=== PATIENT | male | born 1985 | race Caucasian/White ===

== ENCOUNTER 2018-08-26 19:08 | Inpatient (IN) | payer OTHER ==
[~2018-08-26] VITALS: Ht 177.8 cm; Wt 96.2 kg
[2018-08-26 20:13] LABS: BASOPHILS 0.2 % (0-2); HEMATOCRIT 40.2 % (42.0-54.0); IMMATURE GRANULOCYTES 0.4 % (0-5); LYMPHOCYTES 30.6 % (15-50); MCH 29.7 pg (26.0-34.0); MCHC 34.8 g/dL (31.0-37.0); MCV 85.4 fL (80.0-100.0); MEAN PLATELET VOLUME 9.8 fL (7.4-10.4); MONOCYTES 7.6 % (2-11); NEUTROPHILS 59.2 % (40-80); PLATELET COUNT 236 10x3/uL (130-400); RBC 4.71 10x6/uL (4.20-6.10); RDW 12.7 % (11.5-14.5); WBC 10.4 10x3/uL (4.8-10.8)
[2018-08-26 20:25] LABS: ALBUMIN 4.2 g/dL (3.4-5.0); ALKALINE PHOSPHATASE 61 U/L (46-116); ALT (SGPT) 28 U/L (10-68); BILIRUBIN - TOTAL 0.31 mg/dL (0.2-1.3); CALC OSMOLALITY 278 mosm/kg (275-300); CALCIUM 8.9 mg/dL (8.5-10.1); CARBON DIOXIDE 28.5 mmol/L (21.0-32.0); CHLORIDE - SERUM 104 mmol/L (98-107); GLUCOSE 95 mg/dL (74-106); POTASSIUM - SERUM 3.5 mmol/L (3.5-5.1); PROTEIN - SERUM 7.6 g/dL (6.4-8.2); SODIUM 140 mmol/L (136-145); UREA NITROGEN 13 mg/dL (7-18); eGFR NON AFRICAN AMERICAN > 90 mL/min (90-120)
[2018-08-26 20:29] LABS: AMYLASE - SERUM 50 U/L (25-115); LIPASE 100 U/L (73-393)
[2018-08-26 20:46] LABS: TROPONIN-I < 0.017 ng/mL (0.000-0.060)
[2018-08-26 22:17] VITALS: BP 132/77
--- NOTE | 2018-08-26 22:38 | NUR ---
[facility] PAGED PER ORDERS TO CONSULT
--- NOTE | 2018-08-26 22:40 | NUR ---
REC'D CALLBACK FROM [facility], NOTIFIED OF CONSULT, ORDERS FOR NPO AFTER MIDNIGHT GIVEN.
[2018-08-26 23:00] VITALS: BP 124/68
[2018-08-26 23:28] VITALS: BP 102/63
[2018-08-26 23:52] VITALS: BP 124/68; BMI 30.4
[2018-08-27] VITALS (19 sets, daily range): BP systolic 95–124; BP diastolic 51–96; Ht 177.8 cm; Wt 96.2 kg
--- NOTE | 2018-08-27 | NUR ---
SIGNIFICANT OTHER AT BEDSIDE, UPDATE PROVIDED AND QUESTIONS ANSWERED.
--- NOTE | 2018-08-27 03:25 | NUR ---
REASSESSMENT COMPLETE, SEE FLOWSHEET. PT AOX4, VSS. NO C/O PAIN AT THIS TIME. REPOSITIONS SELF INDEPENDENTLY. DENIES NEEDS. CALL LIGHT WITHIN PT REACH. CPOC.
[2018-08-27 04:32] LABS: BASOPHILS 0.3 % (0-2); EOSINOPHILS 2.8 % (0-7); HEMATOCRIT 36.5 % (42.0-54.0); HEMOGLOBIN 12.4 g/dL (13.5-17.5); IMMATURE GRANULOCYTES 0.3 % (0-5); LYMPHOCYTES 37.6 % (15-50); MCV 85.5 fL (80.0-100.0); MEAN PLATELET VOLUME 9.6 fL (7.4-10.4); MONOCYTES 6.8 % (2-11); NEUTROPHILS 52.2 % (40-80); PLATELET COUNT 212 10x3/uL (130-400); RBC 4.27 10x6/uL (4.20-6.10); RDW 12.7 % (11.5-14.5); WBC 7.8 10x3/uL (4.8-10.8)
[2018-08-27 04:51] LABS: ALBUMIN 3.3 g/dL (3.4-5.0); ALKALINE PHOSPHATASE 51 U/L (46-116); ALT (SGPT) 23 U/L (10-68); BILIRUBIN - TOTAL 0.69 mg/dL (0.2-1.3); CALC OSMOLALITY 279 mosm/kg (275-300); CALCIUM 8.3 mg/dL (8.5-10.1); CARBON DIOXIDE 27.1 mmol/L (21.0-32.0); CHLORIDE - SERUM 107 mmol/L (98-107); CREATININE - SERUM 0.9 mg/dL (0.6-1.3); GLUCOSE 88 mg/dL (74-106); POTASSIUM - SERUM 3.6 mmol/L (3.5-5.1); PROTEIN - SERUM 6.3 g/dL (6.4-8.2); SODIUM 141 mmol/L (136-145); UREA NITROGEN 13 mg/dL (7-18); eGFR NON AFRICAN AMERICAN > 90 mL/min (90-120)
[2018-08-27 05:16] LABS: MAGNESIUM - SERUM 1.9 mg/dL (1.8-2.4)
[2018-08-27 05:37] LABS: APPEARANCE CLEAR (CLEAR); BILIRUBIN NEGATIVE (NEGATIVE); COLOR YELLOW (YELLOW); GLUCOSE NEGATIVE (NEGATIVE); KETONE NEGATIVE (NEGATIVE); NITRITE NEGATIVE (NEGATIVE); PROTEIN NEGATIVE (NEGATIVE); SPECIFIC GRAVITY 1.015 (1.005-1.020); UROBILINOGEN NORMAL (NORMAL)
[2018-08-27 05:38] LABS: BACTERIA NONE SEEN /hpf (NONE SEEN); EPITHELIAL CELLS 0-5 /hpf (0-5); RED CELLS - URINE NONE SEEN /hpf (0-5); WHITE CELLS - URINE 0-5 /hpf (0-5)
--- NOTE | 2018-08-27 05:53 | NUR ---
PT RESTING QUIETLY WITH NO C/O PAIN. VSS, AOX4. REPOSITIONS SELF INDEPENDENTLY. DENIES NEEDS AT THIS TIME. CALL LIGHT AND BEDSIDE TABLE WITHIN PT REACH. CPOC.
--- NOTE | 2018-08-27 07:00 | NUR ---
SHIFT ASSESSMENT COMPLETED, PT CARE ASSUMED. MONITORS ON AND WORKING, VITALS STABLE, NO SIGNS/SYMPTOMS OF PAIN OR DISCOMFORT NOTED AT THIS TIME, SEE FLOW SHEET FOR FURTHER DETIALS, CALL LIGHT WITHIN REACH, WILL CONTINUE TO OBSERVE.
--- NOTE | 2018-08-27 09:00 | NUR ---
FAMILY AT BEDSIDE, UPDATE PROVIDED. MONITORS ON AND WORKING, VITALS STABLE, CONSENT OBTAINED IN CHART FOR EGD TODAY. PT AWAKE AND ALERT, CALL LIGHT WITHIN REACH, WILL CONTINUE TO OBSERVE.
--- NOTE | 2018-08-27 11:00 | NUR ---
NO CHANGES, MONITORS ON AND WORKING, VITALS STABLE. NO SIGNS/SYMPTOMS OF PAIN OR DISCOMFORT NOTED. SEE FLOW SHEET FOR FURTHER DETAILS. WILL CONTINUE TO OBSERVE.
--- NOTE | 2018-08-27 13:00 | NUR ---
NO CHANGES, PT PRE OP'D FOR EGD. MONITORS ON AND WORKING, VITALS STABLE, NO SIGNS/SYMPTOMS OF PAIN OR DISCOMFORT NOTED AT THIS TIME, CALL LIGHT WITHIN REACH, WILL CONTINUE TO OBSERVE.
--- NOTE | 2018-08-27 15:00 | NUR ---
NO CHNAGES, SEE FLOW SHEET FOR FURTHER DETIALS, MONITORS ON AND WORKING VITALS STABLE. WILL CONTINUE TO OBSERVE.
--- NOTE | 2018-08-27 16:00 | NUR ---
EGD COMPLETED PER DR BARNETT, PT TOLERATED WELL. MONITORS ON AND WORKING, VITALS STABLE. REC'D TRANSFER ORDERS WHEN ROOM BECOMES AVAILABLE. PT AWAKE AND ALERT, FAMILY AT BEDSIDE, UPDATE PROVIDED. DR BARNETT SPOKE WITH PT AND FAMILY WELL AFTER PROCEDURE. CALL LIGHT WITHIN REACH, WILL CONTINUE TO OBSERVE.
--- NOTE | 2018-08-27 16:12 | NUR ---
1555 1CC OF 1MG/10CC EPINEPHERINE GIVEN VIA INJECTION AT BLEEDING SITE AND GOLD PROBE.
--- NOTE | 2018-08-27 16:28 | MORECARE ---
CASE MANAGEMENT DISCHARGE SUMMARY PATIENT: KELSI CASTANON UNIT: [id number] ADM DATE: 08/26/18 AGE: 32 : 83 SEX: M ROOM/BED: D.2309 AUTHOR: VIPUL TESFAYE PHYSICIAN: REFERRING PHYSICIAN: MAYUR VEGAS MD DATE OF SERVICE: 08/27/18 Discharge Plan Patient Name: KELSI CASTANON [facility] [facility] 1985 Planned Disposition: Anticipated Discharge Date: Discharge Date: Expected LOS: Initial Reviewer: [email or web address] Initial Review Date: 08/26/2018 Generated: 08/27/18 5:27 pm Comments DCP- Discharge Planning Updated by [email or web address]: Opal Roman on 08/27/18 3:[address] CM attempted to visit with patient regarding discharge planning / needs. Patient is currently getting EGD per Dr. Elder at bedside. CM will come back at a later time for d/c planning. CM will continue to follow and assist as needed with discharge planning / needs. Patient Name: KELSI CASTANON Page [id number] at 1628 All edits/amendments must be made on the electronic document DICTATION DATE: 08/27/181626 CORE MAN: CAROLINE 08/27/181626 RPT#: [id number] DC DATE: STATUS: ADM IN [facility] [address] [place] [address] END OF REPORT
--- NOTE | 2018-08-27 17:10 | NUR ---
RECEIVED A TRANSFER FROM ICU VIA W/C TRANSPORT. ALERT ABLE TO SELF TRANSFER. RESP EVEN WITHOUT LABOR SALINE LOCK IN RIGHT HAND. VSS. FAMILY WITH HIM, BBS ARE CLEAR ABDOMEN SOFT WITH BOWEL SOUNDS PRESENT. NO C/O PAIN.
--- NOTE | 2018-08-27 18:15 | NUR ---
HE ATE HIS FULL LIQUID DIET. DENIES ANY C/O AT THIS TIME.
--- NOTE | 2018-08-27 19:10 | NUR ---
RECIEVED UP IN BED WITH EYES OPEN AND TV ON. SPOUSE AT BEDSIDE. ALERT AND ORIENTED X4. UP AD CORWIN. IV TO RIGHT HAND SL.. DENIES ANY NEEDS AT THIS TIME.
[2018-08-28 00:23] VITALS: BP 114/54
[2018-08-28 04:00] VITALS: BP 111/52
[2018-08-28 05:55] LABS: BASOPHILS 0.3 % (0-2); EOSINOPHILS 2.8 % (0-7); HEMATOCRIT 37.8 % (42.0-54.0); IMMATURE GRANULOCYTES 0.1 % (0-5); LYMPHOCYTES 28.9 % (15-50); MCH 29.3 pg (26.0-34.0); MCHC 34.4 g/dL (31.0-37.0); MCV 85.3 fL (80.0-100.0); MEAN PLATELET VOLUME 10.1 fL (7.4-10.4); MONOCYTES 7.3 % (2-11); NEUTROPHILS 60.6 % (40-80); PLATELET COUNT 204 10x3/uL (130-400); RBC 4.43 10x6/uL (4.20-6.10); RDW 12.7 % (11.5-14.5)
[2018-08-28 06:20] LABS: ALBUMIN 3.3 g/dL (3.4-5.0); ALKALINE PHOSPHATASE 53 U/L (46-116); ALT (SGPT) 23 U/L (10-68); BILIRUBIN - TOTAL 0.83 mg/dL (0.2-1.3); CALC OSMOLALITY 277 mosm/kg (275-300); CALCIUM 8.5 mg/dL (8.5-10.1); CARBON DIOXIDE 27.9 mmol/L (21.0-32.0); CHLORIDE - SERUM 105 mmol/L (98-107); CREATININE - SERUM 0.9 mg/dL (0.6-1.3); GLUCOSE 85 mg/dL (74-106); MAGNESIUM - SERUM 2.2 mg/dL (1.8-2.4); PHOSPHOROUS 4.1 mg/dL (2.5-4.9); POTASSIUM - SERUM 3.9 mmol/L (3.5-5.1); PROTEIN - SERUM 6.3 g/dL (6.4-8.2); SODIUM 140 mmol/L (136-145); UREA NITROGEN 13 mg/dL (7-18); eGFR NON AFRICAN AMERICAN > 90 mL/min (90-120)
--- NOTE | 2018-08-28 06:55 | NUR ---
RECEIVED REPORT FROM NIGHTSHIFT AND CARE ASSUMMED. HE IS ASLEEP IN ROOM BUT AROUSES TO VERBAL STIMULI. NO C/O VOICED. CL IN REACH. AMBULATES AD CORWIN. SAFETY PRECAUTIONS IN PLACE AND PLAN OF CARE REVIEWED.
[2018-08-28 07:26] VITALS: BP 115/74
--- NOTE | 2018-08-28 09:15 | NUR ---
ALERT. LYING IN BED WATCHING TV. DENIES ANY CURRENT NEEDS. NO BLEEDING OR ABDOMINAL PAIN.
[2018-08-28 11:10] VITALS: BP 104/71
--- NOTE | 2018-08-28 11:40 | NUR ---
TOOK PO MED. DRINKING AND EATING AND TOLERATED WELL. DENIES ANY ABDOMINAL PAIN OR BLOODY STOOLS. CL IN REACH CONTINUE POC AND MONITOR
--- NOTE | 2018-08-28 13:17 | MORECARE ---
CASE MANAGEMENT DISCHARGE SUMMARY PATIENT: KELSI CASTANON UNIT: [id number] ADM DATE: 08/26/18 AGE: 32 : 81 SEX: M ROOM/BED: D.1208 AUTHOR: VIPUL TESFAYE PHYSICIAN: REFERRING PHYSICIAN: MAYUR VEGAS MD DATE OF SERVICE: 08/28/18 Discharge Plan Patient Name: KELSI CASTANON Facility: [facility]:[place] : 1985 Planned Disposition: Home Anticipated Discharge Date: 08/28/18 Discharge Date: Expected LOS: 2 Initial Reviewer: [email or web address] Initial Review Date: 08/26/2018 Generated: 08/28/18 2:16 pm DCP- Discharge Planning Updated by [email or web address]: Opal Roman on 08/27/18 3:[address] CM attempted to visit with patient regarding discharge planning / needs. Patient is currently getting EGD per Dr. Elder at bedside. CM will come back at a later time for d/c planning. CM will continue to follow and assist as needed with discharge planning / needs. Last DP export: 08/27/18 3:27 p Patient Name: KELSI CASTANON Page [phone] at 1317 All edits/amendments must be made on the electronic document DICTATION DATE: 08/28/18 1316 LEAD ATHLETE: CAROLINE 08/28/18 1316 RPT#: [id number] DC DATE: STATUS: ADM IN [facility] [address] [place] [address] END OF REPORT
--- NOTE | 2018-08-28 13:24 | MORECARE ---
CASE MANAGEMENT DISCHARGE SUMMARY PATIENT: KELSI CASTANON UNIT: [id number] ADM DATE: 08/26/18 AGE: 32 : 81 SEX: M ROOM/BED: D.1208 AUTHOR: VIPUL TESFAYE PHYSICIAN: REFERRING PHYSICIAN: MAYUR VEGAS MD DATE OF SERVICE: 08/28/18 Discharge Plan Patient Name: KELSI CASTANON Facility: [facility]:[place] : 1985 Planned Disposition: Home Anticipated Discharge Date: 08/28/18 Discharge Date: Expected LOS: 2 Initial Reviewer: [email or web address] Initial Review Date: 08/26/2018 Generated: 08/28/18 2:24 pm DCP- Discharge Planning Updated by [email or web address]: Opal Roman on 08/27/18 3:[address] CM attempted to visit with patient regarding discharge planning / needs. Patient is currently getting EGD per Dr. Elder at bedside. CM will come back at a later time for d/c planning. CM will continue to follow and assist as needed with discharge planning / needs. DCPIA - Discharge Planning Initial Assessment Updated by [email or web address]: Jacqueline Degroot on 08/28/18 1:19 pm * Is the patient Alert and Oriented? Yes * How many steps to enter\exit or inside your home? 07/07 W/ LANDIN * PCP PATIENT HAS AN APPOINTMENT AT THE END OF SEPTEMBER WITH DR HILLMAN. YAEL PCP * Pharmacy [facility] IN [place], [place] * Preadmission Environment Home with Family * ADLs Independent * Equipment None * Other Equipment NONE * List name and contact numbers for known caregivers / representatives who currently or will assist patient after discharge: MARK TORRES- [facility]- [phone] * Verbal permission to speak to the caregivers and representatives has been obtained from the patient. Yes * Community resources currently utilized None * Please name any agencies selected above. N/A * Additional services required to return to the preadmission environment? No * Can the patient safely return to the preadmission environment? Yes * Has this patient been hospitalized within the prior 30 days at any hospital? No Last DP export: 08/28/18 12:16 p Patient Name: KELSI CASTANON Page [phone] at 1324 All edits/amendments must be made on the electronic document DICTATION DATE: 08/28/18 1323 MANAGEMENT AND BUDGET ANALYST: CAROLINE 08/28/18 1323 RPT#: [id number] DC DATE: STATUS: ADM IN [facility] [address] [place] [address] END OF REPORT
--- NOTE | 2018-08-28 13:31 | MORECARE ---
CASE MANAGEMENT DISCHARGE SUMMARY PATIENT: KELSI CASTANON UNIT: [id number] ADM DATE: 08/26/18 AGE: 32 : 81 SEX: M ROOM/BED: D.1208 AUTHOR: BRIEN,DOC PHYSICIAN: REFERRING PHYSICIAN: MAYUR VEGAS MD DATE OF SERVICE: 08/28/18 Discharge Plan Patient Name: KELSI CASTANON Facility: [facility]:[place] : 1985 Planned Disposition: Home Anticipated Discharge Date: 08/28/18 Discharge Date: Expected LOS: 2 Initial Reviewer: [email or web address] Initial Review Date: 08/26/2018 Generated: 08/28/18 2:31 pm DCP- Discharge Planning Updated by [email or web address]: Jacqueline Degroot on 08/28/18 12:[address] CM VISITED WITH THE PATIENT AT THE BEDSIDE .A LADY IS SLEEPING IN THE CHAIR AT HIS BEDSIDE. HE HAS TWO LITTLE GIRLS AT HIS SIDE WHO ARE WATCHING TV. CM INTRODUCED SELF AND EXPLAINED MY ROLE. HE GAVE CM PERMISSION TO CONTINUE INTERVIEW W/ THOSE PERSONS PRESENT AT THE BEDSIDE. HE PLANS TO RETURN TO HOME. HAS TRANSPORTATION. HE IS HOPING TO BE DISCHARGED TO HOME TODAY. STATES HE FEELS BETTER. APPEARS TO HAVE TOLERATED HIS LUNCH WELL. HAS NO PCP AT THIS TIME. BUT HAS AN APPOINTMENT SCHEDULED WITH DR HILLMAN AT THE END OF SEPTEMBER. HE IS INDEPENDENT IN HIS CARE. DME- NONE Pharmacy- [facility] THE PATIENT DENIES ANY NEEDS. DOES NOT REQUIRE ANY COMMUNITY OR HOME HEALTH SERVICES. DENIES ANY CONCERNS. HAD NO QUESTIONS. PLAN FOR POSSIBLE DISCHARGE TO HOME THIS EVENING. DCP- Discharge Planning Updated by [email or web address]: Opal Roman on 08/27/18 3:[address] CM attempted to visit with patient regarding discharge planning / needs. Patient is currently getting EGD per Dr. Elder at bedside. CM will come back at a later time for d/c planning. CM will continue to follow and assist as needed with discharge planning / needs. DCPIA - Discharge Planning Initial Assessment Updated by [email or web address]: Jacqueline Degroot on 08/28/18 1:19 pm * Is the patient Alert and Oriented? Yes * How many steps to enter\exit or inside your home? 5/6 W/ L[place] * PCP PATIENT HAS AN APPOINTMENT AT THE END OF SEPTEMBER WITH DR HILLMAN. YAEL PCP * Pharmacy [facility] IN [place], [place] * Preadmission Environment Home with Family * ADLs Independent * Equipment None * Other Equipment NONE * List name and contact numbers for known caregivers / representatives who currently or will assist patient after discharge: MARK TORRES- [employer]- [phone] * Verbal permission to speak to the caregivers and representatives has been obtained from the patient. Yes * Community resources currently utilized None * Please name any agencies selected above. N/A * Additional services required to return to the preadmission environment? No * Can the patient safely return to the preadmission environment? Yes * Has this patient been hospitalized within the prior 30 days at any hospital? No Last DP export: 08/28/18 12:24 p Patient Name: KELSI CASTANON Page [phone] at 1331 All edits/amendments must be made on the electronic document DICTATION DATE: 08/28/181330 PREFORM MACHINE OPERATOR: CAROLINE 08/28/18 1331 RPT#: [id number] DC DATE: STATUS: ADM IN [facility] [address] [place] [address] END OF REPORT
--- NOTE | 2018-08-28 13:40 | NUR ---
HE HAS TOLERATED LUNCH WELL. DENIES ANY ABDOMINAL PAIN OR ISSUES. CL IN REACH FAMILY AT BEDSIDE. CALL INTO DR BARNETT OFFICE TO SEE IF HE IS ABLE TO BE DISCHARGED AND IF ANY SPECIAL INSTRUCTIONS, AWAITING RETURN CALL.
--- NOTE | 2018-08-28 14:12 | NUR ---
FREDO FROM DR BARNETT OFFICE RETURNED CALL AND STATED IT WAS FINE TO DISCHARGE HIM. NO FURTHER INSTRUCTIONS GIVEN BESIDES PROTONIX AND CARAFATE ORDERS.
--- NOTE | 2018-08-28 14:55 | NUR ---
PAGE INTO [facility] APN FOR DISCHARGE FOR PATIENT. SHE CALLED BACK AND I LET HER KNOW FROM THE GI STANDPOINT HE CAN BE DISCHARGED.
[2018-08-28] MEDS ORDERED: PROTONIX40 MG PO ×2 (15:14→15:27)
[2018-08-28] MEDS ORDERED: CARAFATE1 G PO (15:27)
--- NOTE | 2018-08-28 16:28 | NUR ---
DISCHARGED AT THIS TIME. SALINE LOCK TO RIGHT HAND D/C WITH CATH INTACT. DISCHARGE INSTRUCTIONS EXPLAINED AND HE VERBALIZED UNDERSTANDING. COPY WAS RECEIVED. HEART MONITOR REMOVED AND RETURNED TO NEW ACCOUNT INTERVIEWER. ALERT DENIES ANY ABDOMINAL PAIN. AMBULATED WITH ME TO FRONT OF HOSPITAL WHERE WITH PRIVATE AUTO WAS WAITING.
--- NOTE | 2018-08-29 13:47 | MORECARE ---
CASE MANAGEMENT DISCHARGE SUMMARY PATIENT: KELSI CASTANON UNIT: [id number] ADM DATE: 08/26/18 AGE: 32 : 81 SEX: M ROOM/BED: D.1208 AUTHOR: BRIEN,DOC PHYSICIAN: REFERRING PHYSICIAN: MAYUR VEGAS MD DATE OF SERVICE: 08/29/18 Discharge Plan Patient Name: KELSI CASTANON Facility: [facility]:[place] : 1985 Planned Disposition: Home Anticipated Discharge Date: 08/28/18 Discharge Date: 08/28/2018 Expected LOS: 2 Initial Reviewer: [email or web address] Initial Review Date: 08/26/2018 Generated: 08/29/18 2:47 pm DCP- Discharge Planning Updated by [email or web address]: Jacqueline Degroot on 08/28/18 12:[address] CM VISITED WITH THE PATIENT AT THE BEDSIDE .A LADY IS SLEEPING IN THE CHAIR AT HIS BEDSIDE. HE HAS TWO LITTLE GIRLS AT HIS SIDE WHO ARE WATCHING TV. CM INTRODUCED SELF AND EXPLAINED MY ROLE. HE GAVE CM PERMISSION TO CONTINUE INTERVIEW W/ THOSE PERSONS PRESENT AT THE BEDSIDE. HE PLANS TO RETURN TO HOME. HAS TRANSPORTATION. HE IS HOPING TO BE DISCHARGED TO HOME TODAY. STATES HE FEELS BETTER. APPEARS TO HAVE TOLERATED HIS LUNCH WELL. HAS NO PCP AT THIS TIME. BUT HAS AN APPOINTMENT SCHEDULED WITH DR HILLMAN AT THE END OF SEPTEMBER. HE IS INDEPENDENT IN HIS CARE. DME- NONE Pharmacy- [facility] IN [place] THE PATIENT DENIES ANY NEEDS. DOES NOT REQUIRE ANY COMMUNITY OR HOME HEALTH SERVICES. DENIES ANY CONCERNS. HAD NO QUESTIONS. PLAN FOR POSSIBLE DISCHARGE TO HOME THIS EVENING. DCP- Discharge Planning Updated by [email or web address]: Opal Roman on 08/27/18 3:[address] CM attempted to visit with patient regarding discharge planning / needs. Patient is currently getting EGD per Dr. Elder at bedside. CM will come back at a later time for d/c planning. CM will continue to follow and assist as needed with discharge planning / needs. DCPIA - Discharge Planning Initial Assessment Updated by [email or web address]: Jacqueline Degroot on 08/28/18 1:19 pm * Is the patient Alert and Oriented? Yes * How many steps to enter\exit or inside your home? 5/6 W/ [place] * PCP PATIENT HAS AN APPOINTMENT AT THE END OF SEPTEMBER WITH DR HILLMAN. NEW PCP * Pharmacy [facility] IN [place], [place] * Preadmission Environment Home with Family * ADLs Independent * Equipment None * Other Equipment NONE * List name and contact numbers for known caregivers / representatives who currently or will assist patient after discharge: MARK TORRES- [employer]- [phone] * Verbal permission to speak to the caregivers and representatives has been obtained from the patient. Yes * Community resources currently utilized None * Please name any agencies selected above. N/A * Additional services required to return to the preadmission environment? No * Can the patient safely return to the preadmission environment? Yes * Has this patient been hospitalized within the prior 30 days at any hospital? No Last DP export: 08/28/18 12:31 p Patient Name: KELSI CASTANON Page [id number] at 1347 All edits/amendments must be made on the electronic document DICTATION DATE: 08/29/18 1346 TRANSPORTATION ATTENDANT: CAROLINE 08/29/18 1346 RPT#: [id number] DC DATE:08/28/18 STATUS: DIS IN [facility] [address] [place] [address] END OF REPORT
--- NOTE | 2018-08-29 13:56 | MORECARE ---
CASE MANAGEMENT DISCHARGE SUMMARY PATIENT: KELSI CASTANON UNIT: [id number] ADM DATE: 08/26/18 AGE: 32 : 81 SEX: M ROOM/BED: D.1208 AUTHOR: BRIEN,DOC PHYSICIAN: REFERRING PHYSICIAN: MAYUR VEGAS MD DATE OF SERVICE: 08/29/18 Discharge Plan Patient Name: KELSI CASTANON Facility: [facility]:[place] : 1985 Planned Disposition: Home Anticipated Discharge Date: 08/28/18 Discharge Date: 08/28/2018 Expected LOS: 2 Initial Reviewer: [email or web address] Initial Review Date: 08/26/2018 Generated: 08/29/18 2:56 pm DCP- Discharge Planning Updated by [email or web address]: Jacqueline Degroot on 08/28/18 12:[address] CM VISITED WITH THE PATIENT AT THE BEDSIDE .A LADY IS SLEEPING IN THE CHAIR AT HIS BEDSIDE. HE HAS TWO LITTLE GIRLS AT HIS SIDE WHO ARE WATCHING TV. CM INTRODUCED SELF AND EXPLAINED MY ROLE. HE GAVE CM PERMISSION TO CONTINUE INTERVIEW W/ THOSE PERSONS PRESENT AT THE BEDSIDE. HE PLANS TO RETURN TO HOME. HAS TRANSPORTATION. HE IS HOPING TO BE DISCHARGED TO HOME TODAY. STATES HE FEELS BETTER. APPEARS TO HAVE TOLERATED HIS LUNCH WELL. HAS NO PCP AT THIS TIME. BUT HAS AN APPOINTMENT SCHEDULED WITH DR HILLMAN AT THE END OF SEPTEMBER. HE IS INDEPENDENT IN HIS CARE. DME- NONE Pharmacy- [facility] IN [place] THE PATIENT DENIES ANY NEEDS. DOES NOT REQUIRE ANY COMMUNITY OR HOME HEALTH SERVICES. DENIES ANY CONCERNS. HAD NO QUESTIONS. PLAN FOR POSSIBLE DISCHARGE TO HOME THIS EVENING. DCP- Discharge Planning Updated by [email or web address]: Opal Roman on 08/27/18 3:[address] CM attempted to visit with patient regarding discharge planning / needs. Patient is currently getting EGD per Dr. Elder at bedside. CM will come back at a later time for d/c planning. CM will continue to follow and assist as needed with discharge planning / needs. DCPIA - Discharge Planning Initial Assessment Updated by [email or web address]: Jacqueline Degroot on 08/28/18 1:19 pm * Is the patient Alert and Oriented? Yes * How many steps to enter\exit or inside your home? 5/6 W/ [place] * PCP PATIENT HAS AN APPOINTMENT AT THE END OF SEPTEMBER WITH DR HILLMAN. NEW PCP * Pharmacy [facility] IN [place], [place] * Preadmission Environment Home with Family * ADLs Independent * Equipment None * Other Equipment NONE * List name and contact numbers for known caregivers / representatives who currently or will assist patient after discharge: MARK TORRES- [employer]- [phone] * Verbal permission to speak to the caregivers and representatives has been obtained from the patient. Yes * Community resources currently utilized None * Please name any agencies selected above. N/A * Additional services required to return to the preadmission environment? No * Can the patient safely return to the preadmission environment? Yes * Has this patient been hospitalized within the prior 30 days at any hospital? No Last DP export: 08/29/18 12:47 p Patient Name: KELSI CASTANON Page [phone] at 1356 All edits/amendments must be made on the electronic document DICTATION DATE: 08/29/18 1355 SOLAR POOL HEATING INSTALLER: CAROLINE 08/29/18 1355 RPT#: [id number] DC DATE:08/28/18 STATUS: DIS IN [facility] [address] [place] [address] END OF REPORT
== END 2018-08-28 16:28 | disposition home or self-care (01) | DRG 379 ==
LOC: D.ER 19:08 → D.ICU 21:49 → D.M3 08-27 17:11
PROVIDERS: Family Medicine; Internal Medicine Gastroenterology; ADMIT Family Medicine; ATTEND Family Medicine
PROC: 0W3P8ZZ Control Bleeding in Gastrointestinal Tract, Via Natural or Artificial Opening Endoscopic (ICD-10-PCS; 2018-08-27)
PROC: 0DJ08ZZ Inspection of Upper Intestinal Tract, Via Natural or Artificial Opening Endoscopic (ICD-10-PCS; principal; 2018-08-27 13:30)
DX: K29.01 Acute gastritis with bleeding (principal); K21.0 Gastro-esophageal reflux disease with esophagitis